=== PATIENT | female | born 1980 | race Caucasian/White ===

== ENCOUNTER 2017-08-17 12:27 | Emergency (ER) | payer BC ==
[2017-08-17] MEDS ORDERED: SODIUM CHLORIDE 0.9% 1000ML 1,000 ML IVS ONE (12:51)
[2017-08-17] MEDS ORDERED: PROMETHAZINE HCL INJ 25 MG in SODIUM CHLORIDE 0.9% 50ML 50 ML IVPB ONE (12:52)
[2017-08-17] MEDS ORDERED: LIDOCAINE VIS-MYLANTA 30 ML UD PO ONE (12:52)
[2017-08-17 12:53] VITALS: TEMP 98.9
[2017-08-17] MEDS ORDERED: PROMETHAZINE HCL INJ 25 MG/ML VIAL ONE (12:54)
[2017-08-17] MEDS ORDERED: SODIUM CHLORIDE 0.9% 50ML 50 ML ONE (12:54)
--- NOTE | 2017-08-17 14:27 | RAD ---
EXAM DESCRIPTION: Abdomen Series CLINICAL HISTORY: abd pain, n/v COMPARISON: August 15, 2017 FINDINGS: AP supine and upright views of the abdomen show a nonspecific, nonobstructive bowel gas pattern with no evidence for free intraperitoneal air. No air-filled dilated loops of small bowel are seen. No significant air-fluid levels are identified. No obvious organomegaly is seen. No abnormal calcifications are seen in the expected location of the renal collecting systems. Probable vascular calcifications in the pelvis. Increased amount of formed fecal material in the left colon is seen. Single view of the chest shows cardiac silhouette and pulmonary vasculature to be within normal limits. Lungs are normally aerated and clear IMPRESSION: Nonspecific abdominal series Electronically signed by: Jeovany Trent MD 08/17/2017 2:26 PM CDT
--- NOTE | 2017-08-17 15:06 | ED.PDOC ---
History of Present Illness - General Chief Complaint: GI Problem Time Seen by Provider: 08/17/17 12:29 Source: patient Exam Limitations: no limitations - History of Present Illness Initial Comments: The patient is a 36-year-old female presenting to the emergency room secondary to nausea and vomiting as well as some epigastric abdominal pain. The patient was actually in the hospitalyesterday and the day before yesterday for was diagnosed as a mild acute pancreatitis flare. She is not any history of pancreatitis in the past. Her liver function tests there were within normal limits. She initially had a moderately elevated lipase at 500 but an amylase that was near normal and the subsequent lipase the next day was back to normal. She has a normal amylase and lipase here today. She was released yesterday afternoon and started feeling poorly again last night with some nausea and increased pain and she was apparently not written for or did not get filled her nausea and pain medications. No fevers. Again no history of any pancreatitis. No syncopal or near syncope. No abdominal palpable masses. Urinalysis from the lab work from [place] [facility] was clear yesterday. Timing/Duration: unsure Severity: moderate Improving Factors: nothing Worsening Factors: eating Associated Symptoms: denies symptoms, malaise, nausea/vomiting Allergies/Adverse Reactions: Allergies Aspirin Allergy (Verified 08/17/17 12:50) Penicillins Allergy (Verified 08/17/17 12:50) Home Medications: Ambulatory Orders Ondansetron [Zofran Odt] 4 mg PO Q4H PRN #10 tab 08/17/17 Promethazine HCl 25 mg PO Q6H PRN #10 tab 08/17/17 Sucralfate Tab [Carafate Tab] 1 gm PO QID #60 tab 08/17/17 Tramadol HCl 50 mg PO Q6HR PRN #30 tab 08/17/17 Review of Systems - Review of Systems Constitutional: States: malaise EENTM: States: no symptoms reported Respiratory: States: no symptoms reported Cardiology: States: no symptoms reported Gastrointestinal/Abdominal: States: abdominal pain, nausea, vomiting Genitourinary: States: no symptoms reported Musculoskeletal: States: no symptoms reported Skin: States: no symptoms reported Neurological: States: anxiety Endocrine: States: no symptoms reported All other Systems: No Change from Baseline Past Medical History (General) - Patient Medical History Hx Seizures: No Hx Asthma: No Hx Cardiac Disorders: No Hx Congestive Heart Failure: No Hx Hypertension: No Hx Diabetes: No Surgical History: Hysterectomy Family Medical History - Family History Mother Family History: No Known Physical Exam - Physical Exam General Appearance: Alert, Comfortable, No apparent distress Eye Exam: bilateral normal Ears, Nose, Throat: hearing grossly normal, normal ENT inspection Neck: non-tender, full range of motion, supple Respiratory: lungs clear, normal breath sounds, no respiratory distress, no accessory muscle use Cardiovascular/Chest: normal peripheral pulses, regular rate, rhythm, no edema Peripheral Pulses: radial,right: 2+, radial,left: 2+, dorsalis pedis,right: 2+, dorsalis pedis,left: 2+ Gastrointestinal/Abdominal: soft, other - mild epigastric discomforrt palpation. No definite rebound or peritoneal signs. 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 amylase and lipase are normal here today. Most of her pain appears to be in the epigastric area rather than periumbilical. The patient is to minimize solid intake for the next few days but she is to increase her water intake significantly. She'll be written for Zofran to use primarily for nausea control and can use Phenergan additionally as needed. She will be written for some tramadol for pain control if needed. she should additionally take one dose of milk of magnesia today for the mild constipation seen on x-ray. She should monitor for any evidence of any recurrent constipation while taking the tramadol. she'll be written for Carafate for treatment of gastritis as well for the next 2 weeks. She should follow up with her primary care doctor for further workup of the etiologies of pancreatitis in the coming week. Liver function tests were within normal limits as well. - Results/Orders Results/Orders: abdominal series shows no definitive acute pathology. She does have some mild constipation of the descending colon. Laboratory Results - last 24 hr 08/17/17 08/17/17 08/17/17 13:05 13:05 13:05 WBC 6.6 RBC 4.32 Hgb 14.0 Hct 41.4 MCV 95.9 MCH 32.5 H MCHC 33.9 RDW 12.8 Plt Count 229 MPV 8.1 Absolute Neuts (auto) 3.50 Absolute Lymphs (auto) 2.20 Absolute Monos (auto) 0.50 Absolute Eos (auto) 0.40 Absolute Basos (auto) 0.10 Neutrophils % 52.3 Lymphocytes % 33.4 Monocytes % 8.1 Eosinophils % 5.3 H Basophils % 0.9 PT 11.8 INR 1.040 PTT (SP) 23.8 L Sodium 141 Potassium 4.0 Chloride 111 Carbon Dioxide 25 Anion Gap 9.0 L BUN 8 Creatinine 0.82 BUN/Creatinine Ratio 9.8 L Random Glucose 78 Serum Osmolality 278.5 Lactic Acid Calcium 8.4 Magnesium Total Bilirubin 0.5 AST 44 H ALT 34 Alkaline Phosphatase 43 Creatine Kinase 119 CK-MB (CK-2) 1.4 CK-MB (CK-2) % Not Reportable Troponin I < 0.02 Serum Total Protein 6.2 L Albumin 3.8 Globulin 2.4 Albumin/Globulin Ratio 1.6 Amylase 38 Lipase 27 08/17/17 08/17/17 13:05 13:05 WBC RBC Hgb Hct MCV MCH MCHC RDW Plt Count MPV Absolute Neuts (auto) Absolute Lymphs (auto) Absolute Monos (auto) Absolute Eos (auto) Absolute Basos (auto) Neutrophils % Lymphocytes % Monocytes % Eosinophils % Basophils % PT INR PTT (SP) Sodium Potassium Chloride Carbon Dioxide Anion Gap BUN Creatinine BUN/Creatinine Ratio Random Glucose Serum Osmolality Lactic Acid 1.8 Calcium Magnesium 1.9 Total Bilirubin AST ALT Alkaline Phosphatase Creatine Kinase CK-MB (CK-2) CK-MB (CK-2) % Troponin I Serum Total Protein Albumin Globulin Albumin/Globulin Ratio Amylase Lipase Departure - Departure Clinical Impression: Gastritis Qualifiers: Gastritis type: unspecified gastritis Chronicity: acute Gastritis bleeding: without bleeding Qualified Code(s): K29.00 - Acute gastritis without bleeding Pancreatitis Qualifiers: Chronicity: acute Pancreatitis type: unspecified pancreatitis type Acute pancreatitis complication: unspecified Qualified Code(s): K85.90 - Acute pancreatitis without necrosis or infection, unspecified Disposition: Discharge to Home or Self Care Condition: Fair Departure Forms: ED Discharge - Pt. Copy, Patient Portal Self Enrollment Instructions: DI for Pancreatitis, DI for Gastritis Diet: bland diet Activity: increase activity as tolerated Prescriptions: Tramadol HCl 50 mg PO Q6HR PRN #30 tab PRN Reason: Pain -- Moderate To Severe Ondansetron [Zofran Odt] 4 mg PO Q4H PRN #10 tab PRN Reason: Vomiting Promethazine HCl 25 mg PO Q6H PRN #10 tab PRN Reason: Vomiting Sucralfate Tab [Carafate Tab] 1 gm PO QID #60 tab Home Medications: Ambulatory Orders Ondansetron [Zofran Odt] 4 mg PO Q4H PRN #10 tab 08/17/17 Promethazine HCl 25 mg PO Q6H PRN #10 tab 08/17/17 Sucralfate Tab [Carafate Tab] 1 gm PO QID #60 tab 08/17/17 Tramadol HCl 50 mg PO Q6HR PRN #30 tab 08/17/17 Additional Instructions: the patient is a 36-year-old female presenting secondary to persistent symptoms of a mild pancreatitis diagnosed at [facility] yesterday. amylase and lipase are normal here today. Most of her pain appears to be in the epigastric area rather than periumbilical. The patient is to minimize solid intake for the next few days but she is to increase her water intake significantly. She'll be written for Zofran to use primarily for nausea control and can use Phenergan additionally as needed. She will be written for some tramadol for pain control if needed. she should additionally take one dose of milk of magnesia today for the mild constipation seen on x-ray. She should monitor for any evidence of any recurrent constipation while taking the tramadol. she'll be written for Carafate for treatment of gastritis as well for the next 2 weeks. She should follow up with her primary care doctor for further workup of the etiologies of pancreatitis in the coming week. Liver function tests were within normal limits as well.
[2017-08-17 15:58] VITALS: O2SAT 99
[2017-08-17 15:59] VITALS: BP 124/62
== END 2017-08-17 16:00 | disposition home or self-care (01) ==
LOC: ER 12:27
DX: K85.90 Acute pancreatitis without necrosis or infection, unspecified (principal); K29.00 Acute gastritis without bleeding; Z88.0 Allergy status to penicillin; Z88.6 Allergy status to analgesic agent
CPT/HCPCS: 36415; 74020; 80053; 82150; 82550; 82553; 83605; 83690; 83735; 84484; 85025; 85610; 85730; A4216; J2550; J7030

== ENCOUNTER → 2017-08-23 | Outpatient (CLI) | payer BC ==
--- NOTE | 2017-08-23 13:58 | CT ---
EXAM DESCRIPTION: Abdomen/Pelvis w/Contrast CLINICAL HISTORY: PANCREATITIS COMPARISON: None. TECHNIQUE: Postcontrast CT images of the abdomen and pelvis are obtained. This exam was performed according to our departmental dose-optimization program, which includes automated exposure control, adjustment of the mA and/or kV according to patient size and/or use of iterative reconstruction technique . FINDINGS: The visualized lung bases are unremarkable. The liver, spleen, pancreas, adrenal glands, and gallbladder are unremarkable. Abdominal vasculature shows mild atherosclerotic disease. The kidneys, ureters, and urinary bladder are unremarkable. The uterus is not identified and presumed surgically absent. No abnormal adnexal masses seen. The appendix is unremarkable. No small bowel obstruction is seen. Colon is unremarkable. No pathologic lymphadenopathy is seen. Small amount of probably physiologic free fluid in the pelvic cul-de-sac is seen. Osseous structures show no aggressive bony lesions. IMPRESSION: No acute findings on CT of the abdomen and pelvis. No CT evidence of pancreatitis. Electronically signed by: Jeovany Trent MD 08/23/2017 1:57 PM CDT
== END ==
LOC: LAB.O 08:48
PROVIDERS: ATTEND Family Medicine
DX: K85.90 Acute pancreatitis without necrosis or infection, unspecified (principal); R10.0 Acute abdomen; R50.9 Fever, unspecified

== ENCOUNTER → 2017-08-29 | Outpatient (CLI) | payer BC ==
--- NOTE | 2017-08-30 08:39 | US ---
EXAM DESCRIPTION: Abdomen,Limited: Ultrasound. CLINICAL HISTORY: RUQ PAIN COMPARISON: CT scan abdomen and pelvis 08/23/2017. TECHNIQUE: Transabdominal scannin-dimensional and Doppler modes. FINDINGS: The gallbladder is normal in size, shape, and echogenicity, with no intraluminal stones or sludge. No fluid around the gallbladder. No wall thickening. 2.2-2.8 mm. Common bile duct caliber is 2.9 mm which is within normal limits. . No stones in the visualized portion of the duct. Not tender with transducer pressure. The liver demonstrates normal echogenicity; contour of the liver capsule is smooth where seen. No fluid around the liver. Intrahepatic biliary ducts are non-dilated. Craniocaudal dimension in the mid-clavicular axis is 13.0 cm. Pancreas head, body, tail normal in size and echogenicity. Pancreatic duct is not dilated. Normal Doppler vascularity in the hayden hepatis. Abdominal aorta proximal 2.7 x 1.7 cm. IVC visualized and normal caliber. Right kidney measures 9.6 x 5.3 x 4.3 cm. Mid renal cortical thickness normal. Echogenicity normal with no hydronephrosis, no large calcifications, and no perinephric fluid. Contour smooth and vascularity normal. Proximal ureter not visualized. IMPRESSION: 1. Normal ultrasound of gallbladder. Normal caliber of the common bile duct. No fluid in Morison's pouch. Nontender. 2. Normal ultrasound of the liver and pancreas. Normal intrahepatic ducts. No ascites. 3. Normal ultrasound of the right kidney. Electronically signed by: Nikos Cervantes MD 08/30/2017 8:37 AM CDT
== END | disposition home or self-care (01) ==
LOC: US 10:26
PROVIDERS: ATTEND Family Medicine
DX: R10.11 Right upper quadrant pain (principal)

== ENCOUNTER → 2019-06-12 | Outpatient (CLI) | payer OTHER | LOC: YCFC.O 17:26 | PROVIDERS: ATTEND Nurse Practitioner Family | DX: E03.9 Hypothyroidism, unspecified (principal); F17.210 Nicotine dependence, cigarettes, uncomplicated ==

== ENCOUNTER → 2020-01-07 | Outpatient (CLI) | payer BC | LOC: LAB.O 09:38 | PROVIDERS: ATTEND Family Medicine | DX: E03.9 Hypothyroidism, unspecified (principal) ==

== ENCOUNTER → 2020-01-15 | Outpatient (CLI) | payer BC ==
--- NOTE | 2020-01-16 12:26 | US ---
EXAM DESCRIPTION: 3D Diagnostic, Bilateral (accession [id number]), Breast,Bilateral (accession [id number]): Ultrasound CLINICAL HISTORY: 39 yearsFemaleLump in right breast . Bilateral palpable masses. Tender on the right breast. No personal or family history of breast cancer. Menarche age 12. Childbirth age 17. Menopause age 24. No HRT Lifetime risk of developing breast cancer (Tyrer-Cuzick model)(%): 6.6. COMPARISON: None. TECHNIQUE: Bilateral LM, CC, and MLO projection full-field images, digital tomosynthesis technique. Bilateral 2-D digital full-field images: LM, CC, and MLO projections. CAD available for 2-D images.. Transcutaneous scanning of the bilateral breasts utilizing ansari-scale and Doppler modes. Scanning performed by the erp implementation consultant ; observation by Dr. Cervantes. FINDINGS: The breast parenchymal density pattern is: Extremely dense breast tissue, which lowers the sensitivity of mammography. No skin thickening or nipple retraction solitary bilateral microcalcifications. More fatty medial and inferior- posterior breast regions. Skin marker on the palpable lesion left breast approximately 8 cm from the nipple at the 1:30 position. Skin marker upper outer quadrant posterior third right breast 10:00, 9 cm from the nipple. Dense fibroglandular tissue in the region of the right skin marker with focal fatty and fibroglandular tissue in the region of the left marker. Posterior left breast intramammary lymph node. Small right axillary lymph node.. No suspicious microcalcifications bilaterally. Ultrasound: Scanning posterior right breast upper outer quadrant. Emphasis on the 10:00 position 8 cm from the nipple. Diffuse fibroglandular tissue with minimal subcutaneous fatty tissue. No dominant solid mass or distinct cyst. No parenchymal edema or large calcifications. No overlying skin changes. Scanning left breast upper outer quadrant middle third with emphasis on the 2:00 position 6 cm from the nipple. Diffuse fibroglandular tissues with subcutaneous superficial fatty layer. No dominant solid mass or distinct cyst. No parenchymal edema or large calcifications. No overlying skin changes. IMPRESSION: Benign exam. BIRAD CATEGORY: 2 BENIGN FINDINGS. RECOMMENDATIONS: FOLLOW UP: Routine digital bilateral mammographic screening, one year interval from December 2019. Written communication explaining the IMPRESSION and follow-up, will be mailed to the patient and referring health care provider. The FINDINGS and the FOLLOW-UP plan were reviewed in person with the patient after the examination. According to the [employer], yearly mammograms are recommended starting at age 40 and continuing as long as a woman is in good health. Any breast change noted on a breast self-exam should be reported promptly to the patient's healthcare provider. Breast MRI is recommended for women with an approximately 20-25% or greater lifetime risk of breast cancer, including women with a strong family history of breast or ovarian cancer and women who have been treated for Hodgkin's disease. A negative mammographic report should not delay tissue diagnosis in patients with significant clinical history or physical findings. Extremely dense breast tissue limits the sensitivity of digital mammography. Electronically signed by: Nikos Cervantes MD 01/16/2020 12:25 PM [facility]
== END ==
LOC: MAMMO 07:55
PROVIDERS: ATTEND Family Medicine
DX: N63.11 Unspecified lump in the right breast, upper outer quadrant (principal)
CPT/HCPCS: 76641; 77066; G0279

== ENCOUNTER → 2020-02-20 | Outpatient (CLI) | payer BC | LOC: LAB.O 09:45 | PROVIDERS: ATTEND Family Medicine | DX: E03.9 Hypothyroidism, unspecified (principal) ==

== ENCOUNTER → 2020-02-27 | Outpatient (CLI) | payer BC ==
--- NOTE | 2020-02-27 11:52 | RAD ---
Study: Frontal and Lateral Radiographs of the Chest. Indication: CHEST PAIN Comparison: None. Findings: Heart size normal. Interstitial markings mildly prominent bilaterally and may reflect chronic interstitial scarring, mild edema, or atypical infection. No acute osseous abnormality. Electronically signed by: Brody Davis MD 02/27/2020 11:50 AM CDT
== END ==
LOC: RESP 10:39
PROVIDERS: ATTEND Nurse Practitioner
DX: R07.9 Chest pain, unspecified (principal); R91.8 Other nonspecific abnormal finding of lung field